=== PATIENT | male | born 1975 | race Caucasian/White ===

== ENCOUNTER 2017-02-21 15:39 | Emergency (ER) | payer OTHER ==
[2017-02-21 16:10] LABS: BASOPHIL 0.2 % (0-2); EOSINOPHIL 0.1 % (0-5); HCT 46.1 % (42.0-52.0); HGB 16.9 g/dl (13.2-18.0); LYMPHOCYTE 10.8 % (15-48); MCH 30.7 pg (25.0-31.0); MCHC 36.7 g/dL (32.0-36.0); MCV 83.7 fL (78.0-100.0); MONOCYTE 8.6 % (0-12); MPV 9.7 fL (6.0-9.5); NEUTROPHIL 80.3 % (41-80); PLT 314 K/uL (150-400); RBC 5.51 M/uL (4.70-6.00); RDW 13.1 % (11.5-14.0); WBC 12.1 K/uL (4.0-10.5)
[2017-02-21 16:24] LABS: POTASSIUM 3.7 mmol/L (3.5-5.1)
== END 2017-02-21 18:52 | disposition home or self-care (01) ==
LOC: FER 15:39
PROVIDERS: Nurse Practitioner
DX: S32.019A Unspecified fracture of first lumbar vertebra, initial encounter for closed fracture (principal); S32.029A Unspecified fracture of second lumbar vertebra, initial encounter for closed fracture; R56.9 Unspecified convulsions; W18.2XXA Fall in (into) shower or empty bathtub, initial encounter; M43.17 Spondylolisthesis, lumbosacral region
CPT/HCPCS: 36415; 70450; 72100; 80048; 85025